=== PATIENT | male | born 1945 | race Caucasian/White ===

== ENCOUNTER 2019-06-10 08:42 | Day surgery (SDC) | payer OTHER ==
[~2019-06-10] VITALS: Ht 172.7 cm; Wt 81.6 kg
[~2019-06-10 08:42] MED LIST: FISH1000 PO; MULTCAP PO; NS 1,000 ML IV ONE; PRAV80TA2 PO
== END 2019-06-10 08:43 | disposition home or self-care (01) ==
LOC: M OPP 08:42
PROVIDERS: ATTEND Surgery
DX: Z12.11 Encounter for screening for malignant neoplasm of colon (principal); Z53.9 Procedure and treatment not carried out, unspecified reason

== ENCOUNTER 2019-08-05 08:34 | Day surgery (SDC) | payer OTHER ==
[~2019-08-05] VITALS: Ht 172.7 cm; Wt 86.5 kg
[~2019-08-05 08:34] MED LIST changes: +ASPI81TA85 PO; -NS 1,000 ML IV ONE
[2019-08-05] MEDS ORDERED: NS 1,000 ML IV ONE (09:00)
[2019-08-05] MEDS ORDERED: propofoL 500 MG/50 ML VIAL As Ordered ONE (10:39)
[2019-08-05] MEDS ORDERED: LIDOCAINE 2% INJ 100 MG/5 ML SDV (FOR ANES.) As Ordered ONE (10:39)
--- NOTE | 2019-08-05 10:50 | ROOR ---
Patient Name: Julian La Procedure Date: 08/05/2019 10:04 AM Date of : 1945 Age: 74 Room: [facility] Gender: Male Note Status: Finalized Procedure: Colonoscopy Indications: Screening for colorectal malignant neoplasm Providers: Jacky Ferguson MD Referring MD: [facility], Admin. Requesting Provider: Medicines: Monitored Anesthesia Care Complications: No immediate complications. Procedure: Pre-Anesthesia Assessment: - Prior to the procedure, a History and Physical was performed, and patient medications and allergies were reviewed. The patient is competent. The risks and benefits of the procedure and the sedation options and risks were discussed with the patient. All questions were answered and informed consent was obtained. Patient identification and proposed procedure were verified by the physician, the nurse and the anesthesiologist in the endoscopy suite. Mental Status Examination: alert and oriented. Airway Examination: normal oropharyngeal airway and neck mobility. Respiratory Examination: clear to auscultation. CV Examination: normal. Prophylactic Antibiotics: The patient does not require prophylactic antibiotics. Prior Anticoagulants: The patient has taken aspirin, last dose was day of procedure. ASA Grade Assessment: II - A patient with mild systemic disease. After reviewing the risks and benefits, the patient was deemed in satisfactory condition to undergo the procedure. The anesthesia plan was to use monitored anesthesia care (MAC). Immediately prior to administration of medications, the patient was re-assessed for adequacy to receive sedatives. The heart rate, respiratory rate, oxygen saturations, blood pressure, adequacy of pulmonary ventilation, and response to care were monitored throughout the procedure. The physical status of the patient was re-assessed after the procedure. The Colonoscope was introduced through the anus and advanced to the cecum, identified by appendiceal orifice and ileocecal valve. The colonoscopy was performed without difficulty. The patient tolerated the procedure well. The quality of the bowel preparation was good. Findings: The perianal and digital rectal examinations were normal. Two sessile polyps were found in the cecum and ileocecal valve. The polyps were 1 to 4 mm in size. These polyps were removed with a cold snare. Resection and retrieval were complete. Estimated blood loss was minimal. An area of mildly congested mucosa was found in the ascending colon. This was biopsied with a cold forceps for histology. Estimated blood loss was minimal. Two sessile polyps were found in the sigmoid colon. The polyps were 2 to 5 mm in size. These polyps were removed with a cold snare. Resection and retrieval were complete. Estimated blood loss was minimal. A few small-mouthed diverticula were found in the sigmoid colon. The retroflexed view of the distal rectum and anal verge was normal and showed no anal or rectal abnormalities. Impression: - Two 1 to 4 mm polyps in the cecum and at the ileocecal valve, removed with a cold snare. Resected and retrieved. - Congested mucosa in the ascending colon. Biopsied. - Two 2 to 5 mm polyps in the sigmoid colon, removed with a cold snare. Resected and retrieved. - Diverticulosis in the sigmoid colon. - The distal rectum and anal verge are normal on retroflexion view. Recommendation: - Discharge patient to home (ambulatory). - - Repeat colonoscopy to be discussed with primary doctor depending on state of health 5 years from now for surveillance based on pathology results. Jacky Ferguson MD Jacky Ferguson MD 08/05/2019 10:50:19 AM Electronically signed by Jacky Ferguson MD Number of Addenda: 0 Note Initiated On: 08/05/2019 10:04 AM Estimated Blood Loss: Estimated blood loss was minimal.
[2019-08-05 11:25] VITALS: BP 132/80
== END 2019-08-05 11:32 | disposition home or self-care (01) ==
LOC: M OPP 08:34
PROVIDERS: ATTEND Surgery
DX: Z12.11 Encounter for screening for malignant neoplasm of colon (principal); K63.5 Polyp of colon; K63.89 Other specified diseases of intestine; K57.30 Diverticulosis of large intestine without perforation or abscess without bleeding; F17.210 Nicotine dependence, cigarettes, uncomplicated; Z79.82 Long term (current) use of aspirin; Z79.899 Other long term (current) drug therapy

== ENCOUNTER 2023-08-05 13:52 | Observation (INO) | payer MEDICARE, OTHER ==
[~2023-08-05] VITALS: Ht 180.3 cm; Wt 86.2 kg
[~2023-08-05 13:52] MED LIST changes: -ASPI81TA85 PO; +ASPI81TA86 PO
[2023-08-05] MEDS ORDERED: ISOVUE-370 76% 100ML VIAL As Ordered ONE (14:17)
[2023-08-05 14:45] LABS: BASO % 0.5 % (0.0-1.0); EOS # 0.2 10^3/uL (0.0-0.5); EOS % 2.4 % (0.0-3.0); HEMOGLOBIN 15.3 g/dl (13.5-17.5); LYMPH # 2.3 10^3/uL (1.5-5.0); LYMPH % 27.6 % (24.0-44.0); MEAN CORPUSCULAR HEMOGLOBIN 31.4 pg (27.0-33.0); MEAN CORPUSCULAR HGB CONC 33.3 g/dl (32.0-36.5); MEAN CORPUSCULAR VOLUME 94.3 fl (80.0-96.0); MONO % 11.9 % (2.0-8.0); NEUTROPHILS # 4.8 10^3/uL (1.5-8.5); NEUTROPHILS % 57.5 % (36.0-66.0); PLATELET COUNT, AUTOMATED 335 10^3/uL (150-450); RED BLOOD COUNT 4.88 10^6/uL (4.30-6.10); WHITE BLOOD COUNT 8.3 10^3/uL (4.0-10.0)
[2023-08-05 14:56] LABS: INR 0.94; PROTHROMBIN TIME 12.3 SECONDS (12.5-14.5)
[2023-08-05 14:57] LABS: PARTIAL THROMBOPLASTIN TIME 29.7 SECONDS (24.8-34.2)
[2023-08-05 15:13] LABS: RSV AMPLIFICATION NEGATIVE (NEGATIVE)
[2023-08-05 15:23] LABS: BLOOD UREA NITROGEN 13 MG/DL (9-23); CALCIUM LEVEL 9.5 MG/DL (8.3-10.6); CARBON DIOXIDE LEVEL 33 MMOL/L (20-31); CHLORIDE LEVEL 104 MMOL/L (98-107); CK-MB VALUE MASS 2.8 NG/ML (<3.6); CPK CREATINE PHOSPHOKINASE 120 U/L (46-171); CREATININE FOR GFR 0.88 MG/DL (0.70-1.30); GLOMERULAR FILTRATION RATE > 60.0 (>42); GLUCOSE, FASTING 100 MG/DL (74-106); MB/CK RELATIVE INDEX 2.33 (< OR =4); SODIUM LEVEL 139 MMOL/L (136-145)
[2023-08-05 15:39] LABS: ALBUMIN 3.8 G/DL (3.2-5.2); ALKALINE PHOSPHATASE 74 U/L (46-116); ALT/SGPT 16 U/L (7.0-40); AST/SGOT 16 U/L (<34); BILIRUBIN,DIRECT 0.1 MG/DL (<0.4); BILIRUBIN,TOTAL 0.4 MG/DL (0.3-1.2); FREE T4 1.34 NG/DL (0.89-1.76); THYROID STIMULATING HORMONE 0.762 uIU/ML (0.55-4.78); TOTAL PROTEIN 6.8 G/DL (5.7-8.2)
[2023-08-05] MEDS ORDERED: ECOT81TA5 PO (16:30)
[2023-08-05] MEDS ORDERED: ACET-897 PO (16:30)
[2023-08-05] MEDS ORDERED: THERTAB21 PO (16:30)
[2023-08-05] MEDS ORDERED: CELE1CAP99 PO (16:30)
[2023-08-05] MEDS ORDERED: RAMI1CAP22 PO (16:30)
[2023-08-05] MEDS ORDERED: OMEGCAP4 PO (16:30)
[2023-08-05] MEDS ORDERED: HOME MED LIST COMPLETE! XX SCH (16:35)
[2023-08-05] MEDS: ASPIRIN 325 MG TAB PO ONE (16:58)
[2023-08-05 18:44] LABS: HEMOGLOBIN A1c 5.7 % (4.0-6.0)
[2023-08-05 23:08] VITALS: BP 142/86; TEMP 96.9; O2SAT 98
[2023-08-06 04:15] VITALS: BP 126/58; TEMP 97.7; O2SAT 87
[2023-08-06 04:21] VITALS: O2SAT 93
[2023-08-06 07:09] LABS: HEMATOCRIT 40.8 % (42.0-52.0); HEMOGLOBIN 13.9 g/dl (13.5-17.5); MEAN CORPUSCULAR HEMOGLOBIN 31.6 pg (27.0-33.0); MEAN CORPUSCULAR HGB CONC 34.1 g/dl (32.0-36.5); MEAN CORPUSCULAR VOLUME 92.7 fl (80.0-96.0); PLATELET COUNT, AUTOMATED 301 10^3/uL (150-450); WHITE BLOOD COUNT 8.3 10^3/uL (4.0-10.0)
[2023-08-06 07:39] LABS: BLOOD UREA NITROGEN 12 MG/DL (9-23); CALCIUM LEVEL 8.3 MG/DL (8.3-10.6); CARBON DIOXIDE LEVEL 30 MMOL/L (20-31); CHLORIDE LEVEL 105 MMOL/L (98-107); CREATININE FOR GFR 0.83 MG/DL (0.70-1.30); GLOMERULAR FILTRATION RATE > 60.0 (>42); GLUCOSE, FASTING 92 MG/DL (74-106); POTASSIUM SERUM 4.2 MMOL/L (3.5-5.1); SODIUM LEVEL 139 MMOL/L (136-145)
[2023-08-06] MEDS ORDERED: ASPI-1 PO (07:53)
[2023-08-06] MEDS ORDERED: ATOR80TA59 PO (07:53)
[2023-08-06 07:56] VITALS: BP 115/55; TEMP 97.8; O2SAT 93
[2023-08-06] MEDS: ENOXAPARIN 40MG/0.4ML SYRINGE (J1650 PER 10MG) SC SCH (09:00)
[2023-08-06] MEDS ORDERED: ramipriL 1.25 MG CAP PO SCH ×2 (09:00→21:00)
[2023-08-06] MEDS: ATORVASTATIN 20 MG TAB PO SCH (10:35)
[2023-08-06] MEDS: ASPIRIN 325 MG TAB PO SCH (10:36)
[2023-08-06] MEDS ORDERED: CALCIUM CARBONATE 500 MG CHEW U/D PO PRN (11:15)
== END 2023-08-06 13:00 | disposition home or self-care (01) ==
LOC: EDBD 13:52 → M ED 14:43 → M ED INP 16:41 → M MS4PR 23:05
PROVIDERS: ADMIT Family Medicine; ATTEND Internal Medicine Nephrology
DX: G45.9 Transient cerebral ischemic attack, unspecified (principal); R53.1 Weakness; R41.82 Altered mental status, unspecified; I10 Essential (primary) hypertension; E78.5 Hyperlipidemia, unspecified; F17.218 Nicotine dependence, cigarettes, with other nicotine-induced disorders; R73.03 Prediabetes; Z79.82 Long term (current) use of aspirin; Z79.899 Other long term (current) drug therapy
CPT/HCPCS: 36415; 70450; 70496; 70498; 71045; 80047; 80048; 80076; 81001; 82140; 82550; 82553; 83036; 84439; 84443; 84484; 85025; 85027; 85610; 85730; 87631; 93005; 93041; 93306; 94760; 99285; G0378; Q9967

== ENCOUNTER 2025-02-22 06:56 | Day surgery (SDC) | payer MEDICARE, OTHER ==
[~2025-02-22] VITALS: Ht 165.1 cm; Wt 83.5 kg
[~2025-02-22 06:56] MED LIST changes: +ACET-897 PO; +ASPI-1 PO; +ATOR80TA59 PO; +CELE1CAP99 PO; +ECOT81TA5 PO; +MULTTAB61 PO; +OMEGCAP4 PO; +OMEP10CASR PO; -PRAV80TA2 PO; +PRAV80TA75 PO; +PRES1CHW PO; +RAMI2.5C42 PO; +THERTAB21 PO
[2025-02-22] MEDS ORDERED: LR 1,000 ML IV SCH (07:00)
[2025-02-22] MEDS ORDERED: MIDAZOLAM INJ 2 MG/2 ML VIAL As Ordered ONE (07:12)
[2025-02-22] MEDS: PHENYLEPHRINE 2.5% OPHTH SOL 2ML OD SCH (08:14)
[2025-02-22] MEDS: FLURBIPROFEN 0.03% OPHTH SOLN 2.5 ML OD SCH (08:14)
[2025-02-22] MEDS: CYCLOPENTOLATE 1% OPHTH SOLN 2 ML BTL OD SCH (08:14)
[2025-02-22] MEDS: TETRACAINE 0.5% OPHTH SOLN 4ML OD SCH (08:15)
[2025-02-22] MEDS: CEFUROXIME 1 MG/0.1 ML INTRACAMERAL INJ As Ordered ONE (10:04)
[2025-02-22] MEDS: LIDOCAINE 1% SDV 5 ML VIAL As Ordered ONE (10:04)
[2025-02-22 10:20] VITALS: BP 136/58; TEMP 97.3; O2SAT 95
== END 2025-02-22 10:51 | disposition home or self-care (01) ==
LOC: M SDC 06:56
PROVIDERS: ATTEND Ophthalmology
DX: H25.11 Age-related nuclear cataract, right eye (principal); I10 Essential (primary) hypertension; E78.00 Pure hypercholesterolemia, unspecified; Z79.899 Other long term (current) drug therapy; Z79.82 Long term (current) use of aspirin; F17.210 Nicotine dependence, cigarettes, uncomplicated; Z86.73 Personal history of transient ischemic attack (TIA), and cerebral infarction without residual deficits; K21.9 Gastro-esophageal reflux disease without esophagitis
CPT/HCPCS: 66984; J0697; J2250; J3010; V2632